=== PATIENT | male | born 1955 | race Caucasian/White ===

== ENCOUNTER 2018-06-11 09:20 | Outpatient (RCR) | payer OTHER ==
[2018-04-08 09:45] VITALS: BP 106/64
--- NOTE | 2018-04-08 16:22 | ONCOLOGY FOLLOW UP NOTE ---
EVENT DATE: April 08, 2018 CHIEF COMPLAINT Followup for T-LGL leukemia. HISTORY OF PRESENT ILLNESS Patient is a 63-year-old male who was seen today in followup. He was last seen in our office on 01/20/17. He has been getting his labs drawn on an every three-month basis at the [facility]. He presents today with concerns over changing lab values. He had an episode of sinusitis approximately one month ago, but recovered well from this. He has had a 10-pound weight loss in one month. He denies fever or night sweats. He has noted more fatigue. He plans to start working on his diet as most recent hemoglobin A1c had increased to 8.9. HEMATOLOGY HISTORY Patient was diagnosed with T-LGL leukemia in 2002. He was intolerant to CYTOXAN. He was treated with weekly methotrexate from 2002 through 2016. He has been on active surveillance since that time. MEDICAL HISTORY 1. Type 2 diabetes. 2. Diabetic retinopathy. 3. Glaucoma. 4. Cataracts. 5. T-LGL leukemia, diagnosed in 2002. FAMILY HISTORY Father had lung cancer. A sibling had pancreatic cancer. SOCIAL HISTORY Patient is . They have no children. 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 He does not smoke. MEDICATIONS 1. Levemir. 2. Atorvastatin. 3. Glyburide/metformin. 4. Lisinopril. 5. Pioglitazone. 6. Januvia. 7. Valtrex p.r.n. ALLERGIES IODINE. REVIEW OF SYSTEMS A 12-point review of systems is performed and is negative except as stated above. PHYSICAL EXAMINATION VITAL SIGNS: Weight 78.4 kg. BP 106/64, P 79, R 16, temp 97.1, O2 sat 94%. GENERAL: Patient is a well-developed, well-nourished male in no acute distress. HEAD: Normocephalic, atraumatic. EYES: Sclerae anicteric. MOUTH: Moist mucous membranes. No lesions. NECK: Supple. No palpable adenopathy. LUNGS: Clear bilaterally. CARDIOVASCULAR: Heart rate regular, 80 per minute, without murmur, S3, or S4. ABDOMEN: Soft, nontender, with active bowel sounds. No splenomegaly noted. EXTREMITIES: No edema. NEUROLOGIC: Nonfocal. LABORATORIES CBC on 03/31/18 showed a WBC of 3.7, ANC of 0.4, hemoglobin 13.3, hematocrit 38.2, platelets 93,000. CMP was within normal limits except for random glucose 212. Hemoglobin A1c 8.9. IMPRESSION The patient is a 63-year-old male diagnosed with T-cell large cell granular lymphocyte leukemia in 2002, treated with weekly methotrexate from 2002 through 2016. Intolerant of CYTOXAN. On active surveillance since 2016. PLAN 1. T-LGL leukemia. I have reviewed his labs over the past year. White blood cell count remains slightly low. Neutrophil count has decreased from 1.0 in July 2017 to 0.4 in March 2018. He had one episode of sinusitis, but no history of recurrent infection. He denies any fevers. Hemoglobin has been very stable, 13.3 in March 2018. Platelet count has been low, decreased from 110,000 in July 2017 to 93,000 today. We spent some time reviewing the indications for treatment. Current guidelines say to consider treatment for an ANC less than 0.5 or an ANC less than 1.0 with recurrent infection. Another indication would be transfusion-dependent anemia. At this time, we mutually agreed to check his labs again the week of 05/04/18. He will be seen in followup on 05/11/18, and further treatment decisions will be made based on trend of lab tests. I have instructed him to call us if he develops any issues with recurrent infections. RENE
[2018-05-11 12:04] VITALS: BP 100/65
--- NOTE | 2018-05-12 12:41 | [facility]ER ONCOLOGY NOTE ---
EVENT DATE: May 11, 2018 CHIEF COMPLAINT/REASON FOR VISIT Mr. Trotter is a very pleasant 63-year old gentleman with a history of T-LGL leukemia currently on active surveillance since 2017 that presents with worsening neutropenia. HISTORY OF PRESENT ILLNESS Mr. Trotter returns. He was diagnosed with LGL in approximately 2002. He was treated with Cytoxan initially but had profound pancytopenia and it took many months to recover. He was treated then with Methotrexate 30 mg weekly and did excellent with this. We stopped his Methotrexate in early 2015 and he has been off of it for three years now. He states he felt really no better after stopping it, thought, unfortunately. His neutrophil count and other counts maintained for quite some time but over the last four to six months we have seen progressive neutropenia and it is clear we need to start treatment again. Other than fatigue, he feels quite well with no significant thrombocytopenia, bleeding, anemia, other symptoms of concern. PAST MEDICAL/SURGICAL HISTORIES 1. Diabetes mellitus; history of poor control. 2. Diabetic retinopathy. 3. T-LGL diagnosed in 2002, mostly treated with methotrexate, intolerance to Cytoxan. Currently on chemo holiday. FAMILY HISTORY Remarkable for lung cancer in the father and pancreatic cancer in a sibling. 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 Enjoys walking his dog. REVIEW OF SYSTEMS CONSTITUTIONAL: No fevers, chills or weight change. HEENT: No headache or vision changes. CARDIOVASCULAR: No chest pain, dyspnea on exertion or edema. RESPIRATORY: No shortness of breath, wheeze or cough. GASTROINTESTINAL: No nausea, vomiting, diarrhea or constipation. GENITOURINARY: No dysuria or hematuria. MUSCULOSKELETAL: No weakness or joint pain. PSYCHIATRIC: No anxiety or depression. ENDOCRINE: No heat or cold intolerance. HEMATOLOGIC: No bruising or bleeding. PHYSICAL EXAMINATION VITAL SIGNS: Blood pressure 100/65, pulse 77, respiratory rate 16, oxygen saturation 100% on room air, weight 79.7 kg, which is an approximate 10 to 12 pound weight loss compared to 2017. Pain 0/10, fatigue 4/10, which is a new symptom. GENERAL: Stable condition, resting comfortably in the chair. ECOG PERFORMANCE STATUS: 0. HEENT: Normocephalic, atraumatic. SKIN: No concerning findings. CARDIOVASCULAR: Regular rate and rhythm. LUNGS: Clear. ABDOMEN: Soft, nontender, nondistended. EXTREMITIES: No clubbing, cyanosis or significant edema. Remainder of physical exam otherwise unremarkable. IMPRESSION/REPORT/PLAN Mr. Trotter is a very pleasant 63-year old gentleman with the followin. T-cell large granular lymphocytic leukemia, now relapsed. 2. Neutropenia, due to #1. Methotrexate has been quite effective for him and we will use it again. He tolerated 30 mg without issue. We will restart this. 3. 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 We need to increase his Valtrex to 1000 mg twice daily. He should continue this until the inbound sales manager notices improvement in the eyes. He likes to be seen every six months but I think it is more important to see him sooner than that when we are restarting therapy. I answered all of his questions today. Billing: Return visit, level 4. Total time 30 minutes, counseling time 20. MTDD
[~2018-06-11 09:20] MED LIST: ATOR20TA22 PO; GLYB1TAB PO; IBUP-136 PO; LEVI SUBQ; LISI2.5T60 PO; METH15TA4 PO; METH2.5T43 PO; OME20PT PO; PIOG45TA22 PO; RANI-366 PO; SITA100T PO; SITA25TA5 PO; TOBDOO OD; TOBR5DRO44 OP; VALA500T66 PO; [UNRECOGNIZED DRUG - OTHER] PO
[2018-06-11 09:23] VITALS: BP 110/65
--- NOTE | 2018-06-11 11:54 | ONCOLOGY FOLLOW UP NOTE ---
EVENT DATE: June 11, 2018 CHIEF COMPLAINT Mr. Trotter is a pleasant 64-year old gentleman with a history of T-LGL leukemia, who was on active surveillance since 2017. Recently, he presented with worsening neutropenia and was recently reinitiated on Methotrexate weekly, 30 mg at the end of April. HISTORY OF PRESENT ILLNESS Mr. Trotter returns. He was diagnosed with LGL in approximately 2002. He was treated with Cytoxan initially but had profound pancytopenia and it took many months to recover. He was treated then with Methotrexate 30 mg weekly and did excellent with this. We stopped his Methotrexate in early 2015. He was off it for approximately three years. Unfortunately, he did not really feel any better after stopping it but he did tolerate it well. Most recently, his neutrophil count had begun to drop and he has had progressive neutropenia. He was recently re-initiated on Methotrexate at 30 mg weekly. Other than fatigue, he reports feeling well. He has not had any significant thrombocytopenia or anemia thus far. He does state that although he does have some fatigue, this is actually better than it was prior to re-starting Methotrexate. He now only needs about one nap a day of approximately 30 minutes. Previously, he was taking about two to three one-hour long naps daily. He is retired, although keeps himself busy as he is working on his house and his [id number] house with some repairs. He reports stable appetite, although states that he was never really a big eater. He denies any recent fevers, chills, night sweats and no recent infections. No bowel or bladder changes. No nausea or vomiting. PAST MEDICAL/SURGICAL HISTORIES 1. Diabetes mellitus; history of poor control. 2. Diabetic retinopathy. 3. T-LGL diagnosed in 2002, mostly treated with methotrexate, intolerance to Cytoxan. Currently on chemo holiday. FAMILY HISTORY Remarkable for lung cancer in the father and pancreatic cancer in a sibling. 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 Enjoys walking his dog. ALLERGIES Iodine. MEDICATIONS 1. Levemir. 2. Atorvastatin. 3. Glyburide/Metformin. 4. Lisinopril. 5. Pioglitazone. 6. Januvia. 7. Valtrex 1000 mg b.i.d. REVIEW OF SYSTEMS CONSTITUTIONAL: Patient denies any recent fevers, chills, night sweats or recent infections. He denies any weight changes or appetite changes. HEENT: No vision changes. He does have history of herpes simplex virus to the eyes on the left. He continues to follow up with ophthalmology. He has a contact in the left eye, which does help improve his vision. No drainage. He reports that this is currently not an active infection per his recent ophthalmology visit. No tinnitus. No abnormal nasal drainage. No mouth sores. CARDIOVASCULAR: No chest pain. No syncope or presyncope. RESPIRATORY: No cough, sputum production or shortness of breath. No pleuritic chest pain. No hemoptysis. GASTROINTESTINAL: No abdominal pain, nausea, vomiting, diarrhea, constipation, bright red blood per rectum or melena. GENITOURINARY: No dysuria or hematuria. MUSCULOSKELETAL: No focal areas of pain. PSYCHIATRIC: He denies any severe anxiety, severe depression, suicidal or homicidal ideation. ENDOCRINE: No heat or cold intolerance. He has some fatigue, more noticeable yesterday, although in general this has improved. He does report some insomnia and tells me that he has no issue initiating sleep but he does have difficulty maintaining sleep. He tends to wake 4 or 5 hours after sleeping. He occasionally uses NyQuil [id number]. HEMATOLOGIC: No free bleeding. No easy bruising. SKIN: He denies any rash or generalized arthritis. The remainder of a 12-point review of systems is performed today and is otherwise negative. PHYSICAL EXAMINATION VITAL SIGNS: T 98.0, P 64, R 16, BP 110/65, oxygen saturation 98% room air. Current pain level rated at "0/10". Current fatigue listed as "0". GENERAL: This is a pleasant 63-year old gentleman who appears well-hydrated, well-nourished and is in no acute distress. HEAD: Atraumatic, normocephalic. EYES: Sclerae anicteric. ENT/MOUTH: Moist mucous membranes. No mucositis. LUNGS: Clear breath sounds to auscultation bilaterally. CARDIOVASCULAR: Regular rate and rhythm. GI: Abdomen soft, nontender, nondistended. Bowel sounds positive x4. No organomegaly. EXTREMITIES: No edema, clubbing or cyanosis. MUSCULOSKELETAL: Gait and ambulation are steady. PSYCH: Mood and affect are appropriate. DERM: No rash. No suspicious lesions. No petechiae or purpura. LABORATORY Outside labs at [facility] on June 04, 2018: CBC: WBC 2.3, ANC 0.2, hemoglobin 11.9, hematocrit 35.6%, platelets 131,000. He does have a macrocytic hyperchromia with MCV at 104 and MCH 35.6. IMPRESSION AND PLAN Mr. Trotter is a very pleasant 63-year old gentleman with the followin. T-cell large granular lymphocytic leukemia, now relapsed. He is currently on methotrexate 30 mg weekly, which was just initiated approximately one month ago. He is to remain on this for now. He has tolerated 30 mg dose without issue. He is aware that treatment may take several months before we see a rise in neutrophil count. 2. Neutropenia, secondary to #1. Again, patient will continue with Methotrexate. 3. 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 He is on Valtrex 1000 mg daily, which he continues on. He continues to follow up with ophthalmology, whom he just saw earlier this week. He will continue to follow up with them as scheduled. 4. I have asked patient to have repeat labs done in four weeks, which can be done at the [facility] again. I have asked him to have a CBC with diff, CMP as well as iron panel to evaluate his mild anemia. 5. I have asked patient to return to clinic in six weeks for ongoing followup so that we can continue to monitor his counts closely. 6. Patient is scheduled to followup with Dr. Ignacio on August 24, 2018. RENE
== END 2018-07-06 ==
LOC: ONC 09:20
PROVIDERS: ATTEND Internal Medicine
DX: C91.Z2 Other lymphoid leukemia, in relapse (principal); R53.83 Other fatigue; D70.4 Cyclic neutropenia; B00.50 Herpesviral ocular disease, unspecified
CPT/HCPCS: 99212